=== PATIENT | female | born 1990 | race Two or more races ===

== ENCOUNTER → 2021-08-02 | Outpatient (CLI) | payer BC ==
[2021-08-02 10:32] LABS: Alcohol, Urine < 3.0 mg/dL (0-10); Amphetamine Screen, Urine NEGATIVE (NEGATIVE); Barbiturate Scree,Urine NEGATIVE (NEGATIVE); Benzodiazephine Screen, Urine NEGATIVE (NEGATIVE); Cannabinoid Screen, Urine NEGATIVE (NEGATIVE); Cocaine Screen, Urine NEGATIVE (NEGATIVE); Opiate Scree,Urine NEGATIVE (NEGATIVE); Phencyclidine Screen, Urine NEGATIVE (NEGATIVE)
== END | disposition home or self-care (01) ==
LOC: LAB 09:02
PROVIDERS: ATTEND Obstetrics & Gynecology
DX: Z34.80 Encounter for supervision of other normal pregnancy, unspecified trimester (principal); Z31.430 Encounter of female for testing for genetic disease carrier status for procreative management; N39.0 Urinary tract infection, site not specified
CPT/HCPCS: 80307; 86703

== ENCOUNTER 2021-09-19 07:26 | Observation (INO) | payer BC ==
[~2021-09-19 07:26] MED LIST: PREN-129 OR
== END 2021-09-19 10:00 | disposition home or self-care (01) ==
LOC: LDRP 08:04
PROVIDERS: ADMIT Obstetrics & Gynecology; ATTEND Obstetrics & Gynecology
DX: O12.02 Gestational edema, second trimester (principal); Z3A.25 25 weeks gestation of pregnancy
CPT/HCPCS: 59025; 81002; 94760; G0378

== ENCOUNTER → 2021-09-20 | Outpatient (CLI) | payer BC ==
[2021-09-20 13:03] LABS: Potassium 3.5 mmol/L (3.5-5.1)
[2021-09-20 13:18] LABS: Albumin 2.9 g/dL (3.4-5.0); BUN/Creatinine Ratio 11.8; Bilirubin, Total 0.4 mg/dL (0.2-1.0); Calcium 9.2 mg/dL (8.5-10.1); Total Protein 6.9 g/dL (6.4-8.2)
== END | disposition home or self-care (01) ==
LOC: LAB 11:54
PROVIDERS: ATTEND Obstetrics & Gynecology
DX: Z34.80 Encounter for supervision of other normal pregnancy, unspecified trimester (principal); L29.9 Pruritus, unspecified
CPT/HCPCS: 36415; 80053

== ENCOUNTER 2021-09-29 07:44 | Observation (INO) | payer BC ==
[~2021-09-29 07:44] MED LIST changes: +URSO1TAB7 PO
[2021-11-24] MEDS ORDERED: URSO300C9 PO (11:20)
[2021-11-24] MEDS ORDERED: DIPH25CA66 PO (11:20)
[2021-11-24] MEDS ORDERED: GLYB1.257 PO (11:37)
[2021-11-24] MEDS ORDERED: METF-370 PO (11:37)
== END 2021-09-29 11:20 | disposition home or self-care (01) ==
LOC: LDRP 10:00
PROVIDERS: ADMIT Obstetrics & Gynecology; ATTEND Obstetrics & Gynecology
DX: O26.612 Liver and biliary tract disorders in pregnancy, second trimester (principal); K83.1 Obstruction of bile duct; Z3A.26 26 weeks gestation of pregnancy
CPT/HCPCS: 59025; 81002; G0378

== ENCOUNTER 2021-10-06 08:02 | Observation (INO) | payer BC ==
[2021-11-24] MEDS ORDERED: URSO300C9 PO (11:20)
[2021-11-24] MEDS ORDERED: DIPH25CA66 PO (11:20)
[2021-11-24] MEDS ORDERED: GLYB1.257 PO (11:37)
[2021-11-24] MEDS ORDERED: METF-370 PO (11:37)
== END 2021-10-06 09:50 | disposition home or self-care (01) ==
LOC: UNDOADMOB 08:02 → LDRP 08:02 → UNDODISOB 09:50
PROVIDERS: ADMIT Obstetrics & Gynecology; ATTEND Obstetrics & Gynecology
DX: O26.613 Liver and biliary tract disorders in pregnancy, third trimester (principal); K83.1 Obstruction of bile duct; O62.9 Abnormality of forces of labor, unspecified; O26.893 Other specified pregnancy related conditions, third trimester; R11.0 Nausea; R21 Rash and other nonspecific skin eruption; Z3A.28 28 weeks gestation of pregnancy
CPT/HCPCS: 59025; 81002; 94760; G0378

== ENCOUNTER 2021-10-13 07:58 | Observation (INO) | payer BC ==
[2021-10-13] MEDS ORDERED: URSO300C9 PO ×2 (08:53)
[2021-11-24] MEDS ORDERED: DIPH25CA66 PO (11:20)
[2021-11-24] MEDS ORDERED: URSO300C9 PO (11:20)
[2021-11-24] MEDS ORDERED: GLYB1.257 PO (11:37)
[2021-11-24] MEDS ORDERED: METF-370 PO (11:37)
== END 2021-10-13 09:18 | disposition home or self-care (01) ==
LOC: UNDOADMOB 08:04 → LDRP 08:04 → UNDODISOB 09:18
PROVIDERS: ADMIT Obstetrics & Gynecology; ATTEND Obstetrics & Gynecology
DX: O26.613 Liver and biliary tract disorders in pregnancy, third trimester (principal); K83.1 Obstruction of bile duct; O24.419 Gestational diabetes mellitus in pregnancy, unspecified control; Z3A.28 28 weeks gestation of pregnancy
CPT/HCPCS: 59025; 81002; 82962; 94760; G0378

== ENCOUNTER 2021-10-27 08:02 | Observation (INO) | payer BC ==
[~2021-10-27 08:02] MED LIST changes: -URSO1TAB7 PO; +URSO300C9 PO
[2021-11-24] MEDS ORDERED: DIPH25CA66 PO (11:20)
[2021-11-24] MEDS ORDERED: URSO300C9 PO (11:20)
[2021-11-24] MEDS ORDERED: GLYB1.257 PO (11:37)
[2021-11-24] MEDS ORDERED: METF-370 PO (11:37)
== END 2021-10-27 08:58 | disposition home or self-care (01) ==
LOC: LDRP 08:02
PROVIDERS: ADMIT Obstetrics & Gynecology; ATTEND Obstetrics & Gynecology
DX: O26.613 Liver and biliary tract disorders in pregnancy, third trimester (principal); K83.1 Obstruction of bile duct; O24.419 Gestational diabetes mellitus in pregnancy, unspecified control; O26.893 Other specified pregnancy related conditions, third trimester; L29.9 Pruritus, unspecified; Z3A.30 30 weeks gestation of pregnancy
CPT/HCPCS: 59025; 81002; 82948; 82962; 94760; G0378

== ENCOUNTER 2021-11-03 08:04 | Observation (INO) | payer BC | END 2021-11-03 10:08 | disposition home or self-care (01) | LOC: UNDOADMOB 08:04 → LDRP 08:04 → UNDODISOB 10:08 | PROVIDERS: ADMIT Obstetrics & Gynecology; ATTEND Obstetrics & Gynecology | DX: O24.419 Gestational diabetes mellitus in pregnancy, unspecified control (principal); Z3A.31 31 weeks gestation of pregnancy | CPT/HCPCS: 59025; 81002; 94760; G0378 ==

== ENCOUNTER 2021-11-10 09:53 | Observation (INO) | payer BC ==
[~2021-11-10 09:53] MED LIST changes: +URSO1TAB7 PO
[2021-11-24] MEDS ORDERED: DIPH25CA66 PO (11:20)
[2021-11-24] MEDS ORDERED: URSO300C9 PO (11:20)
[2021-11-24] MEDS ORDERED: GLYB1.257 PO (11:37)
[2021-11-24] MEDS ORDERED: METF-370 PO (11:37)
== END 2021-11-10 11:42 | disposition home or self-care (01) ==
LOC: UNDOADMOB 10:11 → LDRP 10:11 → UNDODISOB 11:42
PROVIDERS: ADMIT Obstetrics & Gynecology; ATTEND Obstetrics & Gynecology
DX: O24.419 Gestational diabetes mellitus in pregnancy, unspecified control (principal); O26.613 Liver and biliary tract disorders in pregnancy, third trimester; K83.1 Obstruction of bile duct; Z3A.32 32 weeks gestation of pregnancy
CPT/HCPCS: 59025; 76818; 81002; 82962; 94760; G0378

== ENCOUNTER 2021-11-14 08:05 | Observation (INO) | payer BC ==
[~2021-11-14 08:05] MED LIST changes: -URSO1TAB7 PO
== END 2021-11-14 10:45 | disposition home or self-care (01) ==
LOC: LDRP 09:00 → UNDOADMOB 09:00 → LDRP 09:37 → UNDODISOB 10:45
PROVIDERS: ADMIT Obstetrics & Gynecology; ATTEND Obstetrics & Gynecology
DX: O24.419 Gestational diabetes mellitus in pregnancy, unspecified control (principal); O26.613 Liver and biliary tract disorders in pregnancy, third trimester; K83.1 Obstruction of bile duct; Z3A.33 33 weeks gestation of pregnancy
CPT/HCPCS: 59025; 76818; 81002; 82948; 82962; 94760; G0378

== ENCOUNTER 2021-11-17 07:57 | Observation (INO) | payer BC | END 2021-11-17 11:35 | disposition home or self-care (01) | LOC: LDRP 10:00 | PROVIDERS: ADMIT Obstetrics & Gynecology; ATTEND Obstetrics & Gynecology | DX: O24.419 Gestational diabetes mellitus in pregnancy, unspecified control (principal); O26.613 Liver and biliary tract disorders in pregnancy, third trimester; K83.1 Obstruction of bile duct; Z3A.33 33 weeks gestation of pregnancy | CPT/HCPCS: 59025; 76818; 81002; 82948; 82962; 94760; G0378 ==

== ENCOUNTER 2021-11-21 08:05 | Observation (INO) | payer BC | END 2021-11-21 12:39 | disposition home or self-care (01) | LOC: LDRP 10:00 | PROVIDERS: ADMIT Obstetrics & Gynecology; ATTEND Obstetrics & Gynecology | DX: O24.419 Gestational diabetes mellitus in pregnancy, unspecified control (principal); O26.613 Liver and biliary tract disorders in pregnancy, third trimester; K83.1 Obstruction of bile duct; Z3A.34 34 weeks gestation of pregnancy | CPT/HCPCS: 59025; 76818; 81002; 82948; 82962; 94760; G0378 ==

== ENCOUNTER 2021-11-24 10:24 | Observation (INO) | payer BC ==
[~2021-11-24] VITALS: Ht 147.3 cm; Wt 84.4 kg
[2021-11-24] MEDS ORDERED: URSO300C9 PO ×2 (11:20)
[2021-11-24] MEDS ORDERED: DIPH25CA66 PO ×2 (11:20)
[2021-11-24] MEDS ORDERED: BETAMETHASONE ACET (30mg/5ml) 5ml Vial 6mg/ml IM ONE (11:30)
[2021-11-24] MEDS ORDERED: GLYB1.257 PO ×2 (11:37)
[2021-11-24] MEDS ORDERED: METF-370 PO ×2 (11:37)
[2021-11-24 12:18] LABS: Basophils # (auto) 0 10 ^3/uL (0-0.2); Basophils % (auto) 0.4 % (0.0-2.0); Eosinophils # (auto) 0.1 10 ^3/uL (0-0.8); Eosinophils % (auto) 1.2 % (0.0-7.0); Hematocrit 34.9 % (36.0-46.0); Hemoglobin 12.4 g/dL (12.2-16.2); Lymphocytes # (auto) 1.4 10 ^3/uL (0.4-5.4); Lymphocytes % (auto) 14.1 % (10.0-50.0); Mean Corpuscular Hemoglobin 31.7 pg (28.0-32.0); Mean Corpuscular Hgb Conc. 35.7 g/dL (32.0-36.0); Mean Corpuscular Volume 88.8 fL (80.0-100.0); Monocytes # (auto) 0.7 10 ^3/uL (0-1.3); Monocytes % (auto) 7.1 % (0.0-12.0); Neutrophils # (auto) 7.6 10 ^3/uL (1.6-8.6); Neutrophils % (auto) 77.2 % (37.0-80.0); Red Blood Cells 3.93 10^6/uL (4.0-5.20); Red Cell Distribution Width 13.8 % (11.8-14.3); White Blood Cell 9.8 10^3/uL (4.4-10.8)
[2021-11-24 12:37] LABS: Albumin 2.4 g/dL (3.4-5.0); Calcium 8.6 mg/dL (8.5-10.1); Potassium 3.1 mmol/L (3.5-5.1)
[2021-11-24 12:42] LABS: BUN/Creatinine Ratio 10.8; Bilirubin, Total 0.3 mg/dL (0.2-1.0); Total Protein 6.3 g/dL (6.4-8.2); Uric Acid 2.7 mg/dL (2.6-6.0)
[2021-11-24] MEDS ORDERED: POTASSIUM CHL 20 Meq TABLET PO ONE (13:00)
== END 2021-11-24 13:31 | disposition home or self-care (01) ==
LOC: LDRP 10:24
PROVIDERS: ADMIT Obstetrics & Gynecology; ATTEND Obstetrics & Gynecology
DX: O24.419 Gestational diabetes mellitus in pregnancy, unspecified control (principal); O26.613 Liver and biliary tract disorders in pregnancy, third trimester; K83.1 Obstruction of bile duct; O26.893 Other specified pregnancy related conditions, third trimester; L29.9 Pruritus, unspecified; Z3A.34 34 weeks gestation of pregnancy
CPT/HCPCS: 36415; 59025; 76818; 80053; 81002; 82948; 82962; 84550; 85025; 94760; 96372; G0378; J0702

== ENCOUNTER 2021-11-25 08:19 | Observation (INO) | payer BC ==
[~2021-11-25 08:19] MED LIST changes: +DIPH25CA66 PO; +GLYB1.257 PO; +METF-370 PO
[2021-11-25] MEDS ORDERED: POTASSIUM CHL 20 Meq TABLET PO ONE (13:15)
[2021-11-25] MEDS ORDERED: BETAMETHASONE ACET (30mg/5ml) 5ml Vial 6mg/ml IM ONE (13:15)
== END 2021-11-25 13:13 | disposition home or self-care (01) ==
LOC: LDRP 13:13
PROVIDERS: ADMIT Obstetrics & Gynecology; ATTEND Obstetrics & Gynecology
DX: O24.419 Gestational diabetes mellitus in pregnancy, unspecified control (principal); O26.613 Liver and biliary tract disorders in pregnancy, third trimester; K83.1 Obstruction of bile duct; O21.2 Late vomiting of pregnancy; Z3A.35 35 weeks gestation of pregnancy
CPT/HCPCS: 59025; 81002; 82962; 94760; 96372; G0378

== ENCOUNTER 2021-11-27 10:00 | Observation (INO) | payer BC | END 2021-11-27 11:28 | disposition home or self-care (01) | LOC: LDRP 10:00 | PROVIDERS: ADMIT Obstetrics & Gynecology; ATTEND Obstetrics & Gynecology | DX: O24.419 Gestational diabetes mellitus in pregnancy, unspecified control (principal); O26.613 Liver and biliary tract disorders in pregnancy, third trimester; K83.1 Obstruction of bile duct; Z3A.35 35 weeks gestation of pregnancy | CPT/HCPCS: 59025; 76818; 81002; 82948; 82962; 94760; G0378 ==

== ENCOUNTER → 2021-11-29 | Outpatient (CLI) | payer BC ==
[2021-11-29 09:48] LABS: Basophils # (auto) 0 10 ^3/uL (0-0.2); Basophils % (auto) 0.4 % (0.0-2.0); Eosinophils # (auto) 0.1 10 ^3/uL (0-0.8); Eosinophils % (auto) 1.2 % (0.0-7.0); Hematocrit 35.8 % (36.0-46.0); Hemoglobin 12.8 g/dL (12.2-16.2); Lymphocytes # (auto) 1.8 10 ^3/uL (0.4-5.4); Lymphocytes % (auto) 16.8 % (10.0-50.0); Mean Corpuscular Hemoglobin 31.6 pg (28.0-32.0); Mean Corpuscular Hgb Conc. 35.7 g/dL (32.0-36.0); Mean Corpuscular Volume 88.6 fL (80.0-100.0); Monocytes # (auto) 0.7 10 ^3/uL (0-1.3); Monocytes % (auto) 6.7 % (0.0-12.0); Neutrophils # (auto) 7.9 10 ^3/uL (1.6-8.6); Neutrophils % (auto) 74.9 % (37.0-80.0); Red Blood Cells 4.04 10^6/uL (4.0-5.20); Red Cell Distribution Width 13.7 % (11.8-14.3); White Blood Cell 10.5 10^3/uL (4.4-10.8)
[2021-11-30 07:06] LABS: RPR Non Reactive (Non Reactive)
== END | disposition home or self-care (01) ==
LOC: LAB 09:37
PROVIDERS: ATTEND Obstetrics & Gynecology
DX: Z34.80 Encounter for supervision of other normal pregnancy, unspecified trimester (principal)
CPT/HCPCS: 36415; 84112; 85025; 86592

== ENCOUNTER → 2021-12-06 | Outpatient (CLI) | payer BC | END | disposition home or self-care (01) | LOC: LAB 15:09 | PROVIDERS: ATTEND Obstetrics & Gynecology | DX: Z34.00 Encounter for supervision of normal first pregnancy, unspecified trimester (principal) | CPT/HCPCS: 87081 ==

== ENCOUNTER 2021-12-08 08:30 | Observation (INO) | payer BC ==
[2021-12-08] MEDS ORDERED: NIFEdipine 10 MG CAP PO ONE (17:00)
[2021-12-08] MEDS ORDERED: LACTATED RINGER'S 1,000 ML IV ONE (17:00)
== END 2021-12-08 17:12 | disposition home or self-care (01) ==
LOC: UNDOADMOB 15:30 → LDRP 15:30
PROVIDERS: ADMIT Obstetrics & Gynecology; ATTEND Obstetrics & Gynecology
DX: O24.419 Gestational diabetes mellitus in pregnancy, unspecified control (principal); O26.613 Liver and biliary tract disorders in pregnancy, third trimester; K83.1 Obstruction of bile duct; Z3A.37 37 weeks gestation of pregnancy
CPT/HCPCS: 76818; G0378; 59025; 94760

== ENCOUNTER → 2022-10-03 | Outpatient (CLI) | payer BC ==
[~2022-10-03] MED LIST changes: -DIPH25CA66 PO; -GLYB1.257 PO; -METF-370 PO; -URSO300C9 PO
[2022-10-03 10:31] LABS: Basophils # (auto) 0.1 10 ^3/uL (0-0.2); Basophils % (auto) 1.2 % (0.0-2.0); Eosinophils # (auto) 0.2 10 ^3/uL (0-0.8); Eosinophils % (auto) 1.9 % (0.0-7.0); Hematocrit 38.1 % (36.0-46.0); Hemoglobin 13.7 g/dL (12.2-16.2); Lymphocytes # (auto) 1.5 10 ^3/uL (0.4-5.4); Lymphocytes % (auto) 17.7 % (10.0-50.0); Mean Corpuscular Hemoglobin 30.3 pg (28.0-32.0); Mean Corpuscular Volume 84.3 fL (80.0-100.0); Monocytes # (auto) 0.5 10 ^3/uL (0-1.3); Monocytes % (auto) 5.6 % (0.0-12.0); Neutrophils # (auto) 6.2 10 ^3/uL (1.6-8.6); Neutrophils % (auto) 73.6 % (37.0-80.0); Red Blood Cells 4.52 10^6/uL (4.0-5.20); Red Cell Distribution Width 12.8 % (11.8-14.3); White Blood Cell 8.5 10^3/uL (4.4-10.8)
[2022-10-03 11:32] LABS: Amphetamine Screen, Urine NEGATIVE (NEGATIVE); Barbiturate Scree,Urine NEGATIVE (NEGATIVE); Benzodiazephine Screen, Urine NEGATIVE (NEGATIVE); Cannabinoid Screen, Urine NEGATIVE (NEGATIVE); Cocaine Screen, Urine NEGATIVE (NEGATIVE); Opiate Scree,Urine NEGATIVE (NEGATIVE); Phencyclidine Screen, Urine NEGATIVE (NEGATIVE)
[2022-10-04 06:06] LABS: RPR Non Reactive (Non Reactive)
== END | disposition home or self-care (01) ==
LOC: LAB 09:16
PROVIDERS: ATTEND Obstetrics & Gynecology
DX: Z34.80 Encounter for supervision of other normal pregnancy, unspecified trimester (principal); N39.0 Urinary tract infection, site not specified; Z3A.00 Weeks of gestation of pregnancy not specified
CPT/HCPCS: 36415; 80307; 83036; 84112; 84144; 84702; 85025; 86592; 86703; 86762; 86850; 86900; 86901; 87086; 87340

== ENCOUNTER → 2023-02-02 | Outpatient (CLI) | payer BC ==
[2023-02-02 07:04] LABS: Chloride 111 mmol/L (98-107); Potassium 3.9 mmol/L (3.5-5.1); Sodium 138 mmol/L (136-145)
[2023-02-02 07:10] LABS: Alanine Aminotransferase 11 U/L (13-56); Albumin 2.7 g/dL (3.4-5.0); Alkaline Phosphatase 126 U/L (45-117); Anion Gap 9 (5-15); Aspartate Aminotransferase 10 U/L (15-37); BUN/Creatinine Ratio 11.6 (10.0-20.0); Bilirubin, Direct < 0.1 mg/dL (0-0.2); Bilirubin, Total 0.2 mg/dL (0.2-1.0); Blood Urea Nitrogen 5 mg/dL (7-18); Calcium 8.6 mg/dL (8.5-10.1); Carbon Dioxide 18 mmol/L (21-32); GFR African American 222 mL/min; GFR Non-African American 183 mL/min; Glucose 99 mg/dL (74-106); Total Protein 7.1 g/dL (6.4-8.2); Uric Acid 2.1 mg/dL (2.6-6.0)
[2023-02-02 12:27] LABS: Basophils # (auto) 0 10 ^3/uL (0-0.2); Basophils % (auto) 0.5 % (0.0-2.0); Eosinophils # (auto) 0.2 10 ^3/uL (0-0.8); Eosinophils % (auto) 1.9 % (0.0-7.0); Hematocrit 38.3 % (36.0-46.0); Hemoglobin 12.7 g/dL (12.2-16.2); Lymphocytes # (auto) 1.5 10 ^3/uL (0.4-5.4); Lymphocytes % (auto) 15.4 % (10.0-50.0); Mean Corpuscular Hemoglobin 30.6 pg (28.0-32.0); Mean Corpuscular Hgb Conc. 33.3 g/dL (32.0-36.0); Mean Corpuscular Volume 92.1 fL (80.0-100.0); Monocytes # (auto) 0.5 10 ^3/uL (0-1.3); Monocytes % (auto) 5.6 % (0.0-12.0); Neutrophils # (auto) 7.4 10 ^3/uL (1.6-8.6); Neutrophils % (auto) 76.6 % (37.0-80.0); Nucleated Red Blood Cells % 0.2 %; Red Blood Cells 4.16 10^6/uL (4.0-5.20); Red Cell Distribution Width 13.8 % (11.8-14.3); White Blood Cell 9.6 10^3/uL (4.4-10.8)
== END | disposition home or self-care (01) ==
LOC: LAB 06:12
PROVIDERS: ATTEND Obstetrics & Gynecology
DX: O99.810 Abnormal glucose complicating pregnancy (principal); Z3A.00 Weeks of gestation of pregnancy not specified
CPT/HCPCS: 36415; 80053; 80076; 82951; 83036; 84550; 85025

== ENCOUNTER 2023-02-08 17:10 | Observation (INO) | payer BC ==
[2023-02-08] MEDS ORDERED: PREN-96 PO (18:13)
== END 2023-02-08 18:20 | disposition home or self-care (01) ==
LOC: LDRP 17:10
PROVIDERS: ADMIT Obstetrics & Gynecology; ATTEND Obstetrics & Gynecology
DX: O24.419 Gestational diabetes mellitus in pregnancy, unspecified control (principal); O26.613 Liver and biliary tract disorders in pregnancy, third trimester; K83.1 Obstruction of bile duct; Z3A.28 28 weeks gestation of pregnancy
CPT/HCPCS: 59025; 81002; 82948; 82962; 94760; G0378

== ENCOUNTER 2023-02-19 09:03 | Observation (INO) | payer BC ==
[~2023-02-19 09:03] MED LIST changes: +PREN-96 PO
[2023-02-19] MEDS ORDERED: URSO300C2 PO ×2 (18:24)
== END 2023-02-19 18:46 | disposition home or self-care (01) ==
LOC: UNDOADMOB 16:00 → LDRP 16:00 → UNDODISOB 18:46
PROVIDERS: ADMIT Obstetrics & Gynecology; ATTEND Obstetrics & Gynecology
DX: O24.419 Gestational diabetes mellitus in pregnancy, unspecified control (principal); Z3A.30 30 weeks gestation of pregnancy
CPT/HCPCS: 59025; 76818; 81002; 82948; 82962; 94760; G0378

== ENCOUNTER 2023-02-21 09:21 | Observation (INO) | payer BC ==
[~2023-02-21 09:21] MED LIST changes: +URSO300C2 PO
== END 2023-02-21 17:44 | disposition home or self-care (01) ==
LOC: LDRP 15:53 → UNDOADMOB 15:53 → LDRP 16:14 → UNDODISOB 17:44
PROVIDERS: ADMIT Obstetrics & Gynecology; ATTEND Obstetrics & Gynecology
DX: O24.419 Gestational diabetes mellitus in pregnancy, unspecified control (principal); O26.613 Liver and biliary tract disorders in pregnancy, third trimester; K83.1 Obstruction of bile duct; Z3A.30 30 weeks gestation of pregnancy
CPT/HCPCS: 59025; 76818; 81002; 82948; 82962; 94760; G0378

== ENCOUNTER 2023-02-24 12:54 | Observation (INO) | payer BC, MEDICAID ==
[~2023-02-24 12:54] MED LIST changes: -PREN-129 OR
== END 2023-02-24 14:44 | disposition home or self-care (01) ==
LOC: LDRP 12:54
PROVIDERS: ADMIT Obstetrics & Gynecology; ATTEND Obstetrics & Gynecology
DX: O26.613 Liver and biliary tract disorders in pregnancy, third trimester (principal); K83.1 Obstruction of bile duct; O24.419 Gestational diabetes mellitus in pregnancy, unspecified control; O26.893 Other specified pregnancy related conditions, third trimester; R10.2 Pelvic and perineal pain; Z3A.30 30 weeks gestation of pregnancy
CPT/HCPCS: 59025; 76818; 81002; 82948; 82962; 94760; G0378

== ENCOUNTER 2023-03-03 13:05 | Observation (INO) | payer BC, MEDICAID | END 2023-03-03 15:09 | disposition home or self-care (01) | LOC: LDRP 13:05 → UNDODISOB 16:05 | PROVIDERS: ADMIT Obstetrics & Gynecology; ATTEND Obstetrics & Gynecology | DX: O26.613 Liver and biliary tract disorders in pregnancy, third trimester (principal); K83.1 Obstruction of bile duct; O24.419 Gestational diabetes mellitus in pregnancy, unspecified control; Z3A.31 31 weeks gestation of pregnancy; Z91.040 Latex allergy status | CPT/HCPCS: 59025; 76818; 81002; 94760; G0378 ==

== ENCOUNTER 2023-03-07 16:00 | Observation (INO) | payer BC, MEDICAID | END 2023-03-07 17:00 | disposition home or self-care (01) | LOC: UNDOADMOB 16:00 → LDRP 16:00 → UNDODISOB 17:00 | PROVIDERS: ADMIT Obstetrics & Gynecology; ATTEND Obstetrics & Gynecology | DX: O24.415 Gestational diabetes mellitus in pregnancy, controlled by oral hypoglycemic drugs (principal); O26.613 Liver and biliary tract disorders in pregnancy, third trimester; K83.1 Obstruction of bile duct; Z3A.32 32 weeks gestation of pregnancy; Z79.84 Long term (current) use of oral hypoglycemic drugs | CPT/HCPCS: 59025; 76818; 81002; 94760; G0378 ==

== ENCOUNTER 2023-03-14 07:57 | Observation (INO) | payer BC, MEDICAID ==
[2023-03-14 20:04] LABS: Alanine Aminotransferase 9 U/L (7-40); Albumin 4.1 g/dL (3.2-4.8); Alkaline Phosphatase 170 U/L (46-116); Anion Gap 9 (5-15); Aspartate Aminotransferase 10 U/L (13-40); BUN/Creatinine Ratio 13.2 (10.0-20.0); Bilirubin, Total 0.5 mg/dL (0.2-1.0); Blood Urea Nitrogen < 5 mg/dL (9-23); Calcium 9.3 mg/dL (8.7-10.4); Carbon Dioxide 21 mmol/L (20-30); Chloride 106 mmol/L (98-107); Glucose 80 mg/dL (74-106); Potassium 3.5 mmol/L (3.5-5.1); Sodium 136 mmol/L (136-145)
== END 2023-03-14 19:33 | disposition home or self-care (01) ==
LOC: UNDOADMOB 16:15 → LDRP 16:15
PROVIDERS: ADMIT Obstetrics & Gynecology; ATTEND Obstetrics & Gynecology
DX: O24.419 Gestational diabetes mellitus in pregnancy, unspecified control (principal); O26.613 Liver and biliary tract disorders in pregnancy, third trimester; K83.1 Obstruction of bile duct; Z3A.33 33 weeks gestation of pregnancy
CPT/HCPCS: 36415; 59025; 76818; 80053; 81002; 82948; 82962; 94760; G0378

== ENCOUNTER 2023-03-17 12:09 | Observation (INO) | payer BC, MEDICAID ==
[~2023-03-17] VITALS: Ht 149.9 cm; Wt 82.6 kg
[2023-03-17] MEDS ORDERED: LACTATED RINGER'S 1,000 ML IV ONE (14:15)
[2023-03-17] MEDS ORDERED: METF500S3 PO (14:47)
== END 2023-03-17 15:05 | disposition home or self-care (01) ==
LOC: LDRP 12:09
PROVIDERS: ADMIT Obstetrics & Gynecology; ATTEND Obstetrics & Gynecology
DX: O24.419 Gestational diabetes mellitus in pregnancy, unspecified control (principal); O26.613 Liver and biliary tract disorders in pregnancy, third trimester; K83.1 Obstruction of bile duct; Z3A.33 33 weeks gestation of pregnancy
CPT/HCPCS: 59025; 76818; 81002; 82948; 82962; 94760; 96360; 96361; G0378

== ENCOUNTER 2023-03-21 07:25 | Observation (INO) | payer BC, MEDICAID ==
[~2023-03-21 07:25] MED LIST changes: +METF500S3 PO
== END 2023-03-21 19:13 | disposition home or self-care (01) ==
LOC: UNDOADMOB 15:57 → LDRP 15:57 → UNDODISOB 19:13
PROVIDERS: ADMIT Obstetrics & Gynecology; ATTEND Obstetrics & Gynecology
DX: O24.415 Gestational diabetes mellitus in pregnancy, controlled by oral hypoglycemic drugs (principal); K83.1 Obstruction of bile duct; O24.419 Gestational diabetes mellitus in pregnancy, unspecified control; O62.9 Abnormality of forces of labor, unspecified; Z3A.34 34 weeks gestation of pregnancy; Z79.84 Long term (current) use of oral hypoglycemic drugs
CPT/HCPCS: 59025; 76818; 81002; 82948; 82962; G0378

== ENCOUNTER 2023-03-25 12:02 | Observation (INO) | payer BC, MEDICAID ==
[2023-03-25 15:11] LABS: Basophils # (auto) 0 10 ^3/uL (0-0.2); Basophils % (auto) 0.5 % (0.0-2.0); Eosinophils # (auto) 0.1 10 ^3/uL (0-0.8); Eosinophils % (auto) 0.9 % (0.0-7.0); Hematocrit 38.4 % (36.0-46.0); Hemoglobin 13.4 g/dL (12.2-16.2); Lymphocytes # (auto) 1.4 10 ^3/uL (0.4-5.4); Mean Corpuscular Hemoglobin 31.2 pg (28.0-32.0); Mean Corpuscular Volume 89.1 fL (80.0-100.0); Monocytes # (auto) 0.5 10 ^3/uL (0-1.3); Monocytes % (auto) 5.7 % (0.0-12.0); Neutrophils # (auto) 7.4 10 ^3/uL (1.6-8.6); Neutrophils % (auto) 77.9 % (37.0-80.0); Nucleated Red Blood Cells % 0.1 %; Red Cell Distribution Width 13.6 % (11.8-14.3); White Blood Cell 9.5 10^3/uL (4.4-10.8)
[2023-03-25 15:36] LABS: Albumin 3.7 g/dL (3.2-4.8); Alkaline Phosphatase 185 U/L (46-116); Anion Gap 8 (5-15); Aspartate Aminotransferase 10 U/L (13-40); BUN/Creatinine Ratio 15.4 (10.0-20.0); Bilirubin, Total 0.5 mg/dL (0.2-1.0); Blood Urea Nitrogen 6 mg/dL (9-23); Calcium 9.6 mg/dL (8.7-10.4); Carbon Dioxide 23 mmol/L (20-30); Chloride 106 mmol/L (98-107); Glucose 85 mg/dL (74-106); Potassium 4.1 mmol/L (3.5-5.1); Sodium 137 mmol/L (136-145); Total Protein 6.3 g/dL (5.7-8.2)
[2023-03-25 15:40] LABS: Alanine Aminotransferase 9 U/L (7-40)
[2023-03-27 08:06] LABS: RPR Non Reactive (Non Reactive)
== END 2023-03-25 15:00 | disposition home or self-care (01) ==
LOC: LDRP 12:02
PROVIDERS: ADMIT Obstetrics & Gynecology; ATTEND Obstetrics & Gynecology
DX: O24.419 Gestational diabetes mellitus in pregnancy, unspecified control (principal); O26.613 Liver and biliary tract disorders in pregnancy, third trimester; K83.1 Obstruction of bile duct; Z3A.34 34 weeks gestation of pregnancy
CPT/HCPCS: 36415; 59025; 76818; 80053; 81002; 82962; 83036; 85025; 86592; G0378

== ENCOUNTER 2023-03-28 11:01 | Observation (INO) | payer BC, MEDICAID | END 2023-03-28 18:00 | disposition home or self-care (01) | LOC: UNDOADMOB 16:08 → LDRP 16:08 → UNDODISOB 18:00 | PROVIDERS: ADMIT Obstetrics & Gynecology; ATTEND Obstetrics & Gynecology | DX: O24.419 Gestational diabetes mellitus in pregnancy, unspecified control (principal); O26.613 Liver and biliary tract disorders in pregnancy, third trimester; K83.1 Obstruction of bile duct; Z3A.35 35 weeks gestation of pregnancy | CPT/HCPCS: 59025; 76818; 81002; 82948; 82962; 94760; G0378 ==

== ENCOUNTER 2023-03-31 13:02 | Observation (INO) | payer BC, MEDICAID | END 2023-03-31 15:07 | disposition home or self-care (01) | LOC: LDRP 13:02 | PROVIDERS: ADMIT Obstetrics & Gynecology; ATTEND Obstetrics & Gynecology | DX: O24.419 Gestational diabetes mellitus in pregnancy, unspecified control (principal); O26.613 Liver and biliary tract disorders in pregnancy, third trimester; K83.1 Obstruction of bile duct; Z3A.35 35 weeks gestation of pregnancy | CPT/HCPCS: 59025; 76818; 81002; 82948; 82962; 94760; G0378 ==

== ENCOUNTER → 2023-04-03 | Outpatient (CLI) | payer BC, MEDICAID | END | disposition home or self-care (01) | LOC: LAB 15:33 | PROVIDERS: ATTEND Obstetrics & Gynecology | DX: Z34.80 Encounter for supervision of other normal pregnancy, unspecified trimester (principal); Z3A.00 Weeks of gestation of pregnancy not specified | CPT/HCPCS: 87081 ==

== ENCOUNTER 2023-04-04 09:27 | Observation (INO) | payer BC, MEDICAID | END 2023-04-04 17:35 | disposition home or self-care (01) | LOC: LDRP 15:54 | PROVIDERS: ADMIT Obstetrics & Gynecology; ATTEND Obstetrics & Gynecology | DX: O24.419 Gestational diabetes mellitus in pregnancy, unspecified control (principal); O26.613 Liver and biliary tract disorders in pregnancy, third trimester; K83.1 Obstruction of bile duct; Z3A.36 36 weeks gestation of pregnancy | CPT/HCPCS: 59025; 76818; 81002; 82962; 94760; G0378 ==

== ENCOUNTER 2023-04-07 12:40 | Observation (INO) | payer BC, MEDICAID | END 2023-04-07 14:34 | disposition home or self-care (01) | LOC: LDRP 12:40 | PROVIDERS: ADMIT Obstetrics & Gynecology; ATTEND Obstetrics & Gynecology | DX: O24.419 Gestational diabetes mellitus in pregnancy, unspecified control (principal); O26.613 Liver and biliary tract disorders in pregnancy, third trimester; K83.1 Obstruction of bile duct; Z3A.36 36 weeks gestation of pregnancy | CPT/HCPCS: 59025; 76818; 81002; 82962; 94760; G0378 ==

== ENCOUNTER 2023-04-10 07:10 | Inpatient (IN) | payer BC, MEDICAID ==
[~2023-04-10] VITALS: Ht 149.9 cm; Wt 90.7 kg
[2023-04-10] MEDS ORDERED: PHISODERM TOP SOLN 240ML BTL TOP PRN (07:30)
[2023-04-10] MEDS ORDERED: LIDOCAINE 2%HCL (LOCAL ANESTH.) INJ 20ML MDV IJ PRN (07:30)
[2023-04-10] MEDS ORDERED: DERMOPLAST 60ML BOTTLE TOP PRN (07:30)
[2023-04-10] MEDS ORDERED: WITCH HAZEL-GLYCERIN PAD TOP PRN (07:30)
[2023-04-10] MEDS ORDERED: BUTORPHANOL TARTRATE 2 MG/1 ML VIAL IV PRN ×2 (07:30)
[2023-04-10] MEDS ORDERED: PROMETHAZINE HCL 25 MG/ML 1ML IV PRN (07:30)
[2023-04-10 07:56] LABS: Urine Bacteria MOD /hpf (None Seen); Urine Blood Negative /uL (Negative); Urine Clarity HAZY (Clear); Urine Color Colorless (Yellow); Urine Protein, UAD Negative (Negative); Urine Specific Gravity 1.008 (1.001-1.035); Urine Urobilinogen Normal (Negative); Urine WBC 1 /hpf (0 - 5)
[2023-04-10 08:01] LABS: Basophils # (auto) 0 10 ^3/uL (0-0.2); Basophils % (auto) 0.5 % (0.0-2.0); Eosinophils # (auto) 0.1 10 ^3/uL (0-0.8); Eosinophils % (auto) 1.1 % (0.0-7.0); Hematocrit 39.3 % (36.0-46.0); Hemoglobin 13.4 g/dL (12.2-16.2); Lymphocytes # (auto) 1.6 10 ^3/uL (0.4-5.4); Lymphocytes % (auto) 18.9 % (10.0-50.0); Mean Corpuscular Hemoglobin 30.4 pg (28.0-32.0); Mean Corpuscular Hgb Conc. 34.1 g/dL (32.0-36.0); Mean Corpuscular Volume 89.2 fL (80.0-100.0); Monocytes # (auto) 0.5 10 ^3/uL (0-1.3); Monocytes % (auto) 6.2 % (0.0-12.0); Neutrophils # (auto) 6.3 10 ^3/uL (1.6-8.6); Neutrophils % (auto) 73.3 % (37.0-80.0); Nucleated Red Blood Cells % 0.1 %; Red Cell Distribution Width 13.4 % (11.8-14.3); White Blood Cell 8.6 10^3/uL (4.4-10.8)
[2023-04-10 08:21] LABS: INR 0.92 (0.9-1.15); Partial Thromboplastin Time 26.5 SEC (24.5-34.5); Prothrombin Time 9.7 sec (9.3-11.8)
[2023-04-10 08:25] LABS: Amphetamine Screen, Urine Neg (NEGATIVE); Barbiturate Scree,Urine Neg (NEGATIVE); Benzodiazephine Screen, Urine Neg (NEGATIVE); Cocaine Screen, Urine Neg (NEGATIVE)
[2023-04-10 08:26] LABS: Opiate Scree,Urine Neg (NEGATIVE)
[2023-04-10 08:27] LABS: Cannabinoid Screen, Urine Neg (NEGATIVE); Phencyclidine Screen, Urine Neg (NEGATIVE)
[2023-04-10 08:29] LABS: Alanine Aminotransferase < 9 U/L (7-40); Albumin 3.6 g/dL (3.2-4.8); Alkaline Phosphatase 187 U/L (46-116); Anion Gap 9 (5-15); Aspartate Aminotransferase 13 U/L (13-40); BUN/Creatinine Ratio 11.4 (10.0-20.0); Blood Urea Nitrogen < 5 mg/dL (9-23); Calcium 8.9 mg/dL (8.5-10.1); Carbon Dioxide 20 mmol/L (20-30); Chloride 108 mmol/L (98-107); Glucose 123 mg/dL (74-106); Potassium 3.9 mmol/L (3.5-5.1); Sodium 137 mmol/L (136-145)
[2023-04-10 08:30] LABS: Bilirubin, Total 0.5 mg/dL (0.2-1.0); Total Protein 6.5 g/dL (5.7-8.2)
[2023-04-10] MEDS ORDERED: PROMETHAZINE HCL 25 MG/ML 1ML IM PRN (08:45)
[2023-04-10] MEDS ORDERED: MINERAL OIL TOPICAL 10ml TOP PRN (08:45)
[2023-04-10] MEDS ORDERED: fentaNYL CITRATE 100 MCG/2 ML VL IV PRN (08:45)
[2023-04-10] MEDS: miSOPROStol 50 MCG per PRE-CUT 1/2 TAB PO PRN ×4 (09:46→23:37)
[2023-04-10] MEDS: LACTATED RINGER'S 1,000 ML IV SCH (09:46)
[2023-04-10] MEDS ORDERED: TERBUTALINE SULFATE 1 MG/ML 1ML VIAL SC PRN (10:15)
[2023-04-10] MEDS ORDERED: diphenhdrAMINE HCL 50 MG/1 ML VL IV PRN (10:15)
[2023-04-10] MEDS ORDERED: TRANEXAMIC ACID 1,000 MG in SODIUM CHL 0.9% 100 ML IV PRN (10:15)
[2023-04-10] MEDS ORDERED: METHYLERGONOVINE MALEATE 0.2 MG/ML AMP IM PRN (10:15)
[2023-04-10] MEDS ORDERED: ACETAMINOPHEN 325 MG TAB PO PRN (10:15)
[2023-04-10] MEDS ORDERED: miSOPROStol 100 mcg TAB SL PRN (10:15)
[2023-04-10] MEDS ORDERED: DIPHENOXYLATE W/ATROPINE 2.5 MG TAB PO SCH (12:00)
[2023-04-10] MEDS: URSODIOL 300 MG CAP PO SCH (18:45)
[2023-04-11] MEDS: LACTATED RINGER'S 1,000 ML IV SCH (00:12)
[2023-04-11] MEDS: URSODIOL 300 MG CAP PO SCH ×3 (03:29→19:10)
[2023-04-11] MEDS: miSOPROStol 50 MCG per PRE-CUT 1/2 TAB PO PRN (04:26)
[2023-04-11] MEDS ORDERED: PENICILLIN G POT 5MIL/D5 50ML 50 ML IV ONE (04:45)
[2023-04-11 07:06] LABS: RPR Non Reactive (Non Reactive)
[2023-04-11] MEDS: ONDANSETRON HCL 4 MG/2 ML VIAL IV PRN ×3 (08:11→15:08)
[2023-04-11] MEDS ORDERED: fentaNYL CITRATE 100 MCG/2 ML VL IV ONE (08:30)
[2023-04-11] MEDS ORDERED: NALOXONE HCL 0.4 MG/ML VIAL IV ONE (08:30)
[2023-04-11] MEDS ORDERED: ePHEDrine SULFATE 50 MG/ML AMP IV ONE (08:30)
[2023-04-11] MEDS ORDERED: ROPIVACAINE HCL 200 ML EPI SCH ×2 (08:30→12:30)
[2023-04-11] MEDS ORDERED: LACTATED RINGER'S 1,000 ML IV ONE (08:30)
[2023-04-11] MEDS ORDERED: ROPIVACAINE HCL 200 ML ONE (08:32)
[2023-04-11] MEDS ORDERED: PENICILLIN G POTASSIUM 2,500,000 UNITS in D5W 5% 50 ML IV SCH (08:45)
[2023-04-11] MEDS ORDERED: LACT. RINGERS/OXYTOCIN 20UNITS 500 ML IV ONE ×2 (09:00→09:30)
[2023-04-11] MEDS: LACT. RINGERS/OXYTOCIN 20UNITS 1,000 ML IV SCH ×2 (09:51→18:26)
[2023-04-11] MEDS ORDERED: D5W/LACTATED RINGERS 1,000 ML IV SCH (12:00)
[2023-04-11] MEDS: ACETAMINOPHEN 325 MG TAB PO PRN (12:52)
[2023-04-11] MEDS ORDERED: miSOPROStol 100 mcg TAB PR PRN (23:00)
[2023-04-11] MEDS ORDERED: miSOPROStol 100 mcg TAB SL PRN (23:00)
[2023-04-11] MEDS ORDERED: METHYLERGONOVINE MALEATE 0.2 MG/ML AMP IM PRN (23:00)
[2023-04-11] MEDS ORDERED: CARBOPROST TROMETHAMINE 250 MCG/1ML VIAL IM ONE (23:00)
[2023-04-11] MEDS ORDERED: ONDANSETRON HCL 4 MG/2 ML VIAL IV PRN (23:00)
[2023-04-12] MEDS ORDERED: OXYTOCIN 10UNIT/ML 1ML VIAL ONE (04:17)
[2023-04-12] MEDS ORDERED: ceFAZolin 2 GM/D5W100ml 100 ML IV ONE (04:21)
[2023-04-12] MEDS ORDERED: DOCUSATE SOD 100 MG CAP PO ONE (10:23)
[2023-04-12] MEDS ORDERED: IBUPROFEN 600 MG TAB PO ONE (10:23)
[2023-04-12] MEDS ORDERED: LACT. RINGERS/OXYTOCIN 20UNITS 500 ML IV ONE (13:45)
[2023-04-12 14:56] VITALS: BP 97/55; PULSE 85; RESP 17; TEMP 98; O2SAT 98
[2023-04-12] MEDS: IBUPROFEN 600 MG TAB PO PRN ×2 (15:29→23:02)
[2023-04-12 18:40] VITALS: BP 102/58; PULSE 92; RESP 17; TEMP 98.2; O2SAT 98
[2023-04-12] MEDS: ACETAMINOPHEN 325 MG TAB PO PRN (20:08)
[2023-04-12 23:10] VITALS: BP 91/60; PULSE 72; RESP 17; TEMP 97.9; O2SAT 99
[2023-04-13 03:10] VITALS: BP 93/59; PULSE 81; RESP 18; TEMP 97.4; O2SAT 100
[2023-04-13 06:30] VITALS: PULSE 61; RESP 16; O2SAT 96
[2023-04-13 07:00] VITALS: BP 108/69; PULSE 86; RESP 16; TEMP 98.5; O2SAT 98
[2023-04-13 08:03] LABS: Basophils # (auto) 0 10 ^3/uL (0-0.2); Basophils % (auto) 0.3 % (0.0-2.0); Eosinophils # (auto) 0.3 10 ^3/uL (0-0.8); Eosinophils % (auto) 3.5 % (0.0-7.0); Hematocrit 31.4 % (36.0-46.0); Hemoglobin 10.6 g/dL (12.2-16.2); Lymphocytes # (auto) 1.8 10 ^3/uL (0.4-5.4); Lymphocytes % (auto) 19.5 % (10.0-50.0); Mean Corpuscular Hemoglobin 30.7 pg (28.0-32.0); Mean Corpuscular Hgb Conc. 33.7 g/dL (32.0-36.0); Mean Corpuscular Volume 90.9 fL (80.0-100.0); Monocytes # (auto) 0.8 10 ^3/uL (0-1.3); Monocytes % (auto) 8.2 % (0.0-12.0); Neutrophils # (auto) 6.3 10 ^3/uL (1.6-8.6); Neutrophils % (auto) 68.5 % (37.0-80.0); Nucleated Red Blood Cells % 0.1 %; Red Blood Cells 3.45 10^6/uL (4.0-5.20); Red Cell Distribution Width 13.1 % (11.8-14.3); White Blood Cell 9.3 10^3/uL (4.4-10.8)
[2023-04-13 11:00] VITALS: BP 91/60; PULSE 72; RESP 17; TEMP 97.9; O2SAT 99
[2023-04-13 22:06] LABS: Treponema pallidum Ab (FTA-Ab) Non Reactive (Non Reactive)
== END 2023-04-13 11:35 | disposition home or self-care (01) | DRG 805 ==
LOC: NUR 07:10 → UNDOADMIN 07:10 → LDRP 07:10
PROVIDERS: ADMIT Obstetrics & Gynecology; ATTEND Obstetrics & Gynecology
PROC: 3E0P7VZ Introduction of Hormone into Female Reproductive, Via Natural or Artificial Opening (ICD-10-PCS; 2023-04-10)
PROC: 10E0XZZ Delivery of Products of Conception, External Approach (ICD-10-PCS; principal; 2023-04-12)
PROC: 10907ZC Drainage of Amniotic Fluid, Therapeutic from Products of Conception, Via Natural or Artificial Opening (ICD-10-PCS; 2023-04-12)
PROC: 3E0R3BZ Introduction of Anesthetic Agent into Spinal Canal, Percutaneous Approach (ICD-10-PCS; 2023-04-12)
PROC: 00HU33Z Insertion of Infusion Device into Spinal Canal, Percutaneous Approach (ICD-10-PCS; 2023-04-12)
PROC: 0HQ9XZZ Repair Perineum Skin, External Approach (ICD-10-PCS; 2023-04-12)
PROC: 3E033VJ Introduction of Other Hormone into Peripheral Vein, Percutaneous Approach (ICD-10-PCS; 2023-04-12)
DX: O77.0 Labor and delivery complicated by meconium in amniotic fluid (principal); K83.1 Obstruction of bile duct; Z37.0 Single live birth; O69.81X0 Labor and delivery complicated by cord around neck, without compression, not applicable or unspecified; O70.0 First degree perineal laceration during delivery; O24.429 Gestational diabetes mellitus in childbirth, unspecified control; O99.52 Diseases of the respiratory system complicating childbirth; J45.909 Unspecified asthma, uncomplicated; Z3A.37 37 weeks gestation of pregnancy; O66.0 Obstructed labor due to shoulder dystocia; O75.89 Other specified complications of labor and delivery
CPT/HCPCS: 36415; 59025; 59409; 80053; 80307; 81001; 81002; 82948; 82962; 85025; 85610; 85730; 86592; 86850; 86900; 86901; 94760; 94762; 96360; 96361; 96365; 96366; 96372; G0378; J2405; J2540; J2590; J7060

== ENCOUNTER 2023-05-17 23:19 | Inpatient (IN) | payer BC, MEDICAID ==
[~2023-05-17] VITALS: Ht 149.9 cm; Wt 86.3 kg
[2023-05-18] VITALS (9 sets, daily range): BP systolic 98–113; BP diastolic 66–67; PULSE 89–98; RESP 16–18; TEMP 98.2–99.1; O2SAT 95–100
[2023-05-18 00:16] LABS: Basophils # (auto) 0 10 ^3/uL (0-0.2); Basophils % (auto) 0.2 % (0.0-2.0); Eosinophils # (auto) 0 10 ^3/uL (0-0.8); Hematocrit 44.6 % (36.0-46.0); Hemoglobin 14.9 g/dL (12.2-16.2); Lymphocytes # (auto) 1.2 10 ^3/uL (0.4-5.4); Lymphocytes % (auto) 6.8 % (10.0-50.0); Mean Corpuscular Hemoglobin 29.8 pg (28.0-32.0); Mean Corpuscular Hgb Conc. 33.5 g/dL (32.0-36.0); Monocytes # (auto) 0.9 10 ^3/uL (0-1.3); Monocytes % (auto) 5.2 % (0.0-12.0); Neutrophils # (auto) 15.6 10 ^3/uL (1.6-8.6); Neutrophils % (auto) 87.8 % (37.0-80.0); Red Blood Cells 5.02 10^6/uL (4.0-5.20); Red Cell Distribution Width 12.5 % (11.8-14.3); White Blood Cell 17.7 10^3/uL (4.4-10.8)
[2023-05-18 00:37] LABS: Alanine Aminotransferase 36 U/L (7-40); Albumin 4.9 g/dL (3.2-4.8); Alkaline Phosphatase 137 U/L (46-116); Anion Gap 13 (5-15); Aspartate Aminotransferase 20 U/L (13-40); BUN/Creatinine Ratio 15.8 (10.0-20.0); Bilirubin, Total 0.8 mg/dL (0.2-1.0); Blood Urea Nitrogen 12 mg/dL (9-23); Calcium 9.2 mg/dL (8.7-10.4); Carbon Dioxide 21 mmol/L (20-30); Chloride 104 mmol/L (98-107); Glucose 141 mg/dL (74-106); Lipase 32 U/L (12-53); Potassium 3.7 mmol/L (3.5-5.1); Sodium 138 mmol/L (136-145); Total Protein 7.7 g/dL (5.7-8.2)
[2023-05-18 01:19] LABS: Urine Bacteria NONE SEEN /hpf (None Seen); Urine Blood Negative /uL (Negative); Urine Clarity HAZY (Clear); Urine Color Yellow (Yellow); Urine Mucus FEW (None Seen); Urine Protein, UAD 1+ (Negative); Urine Specific Gravity 1.034 (1.001-1.035); Urine WBC 14 /hpf (0 - 5)
[2023-05-18] MEDS ORDERED: IOHEXOL 300 MG/ML 100ML BOTTLE IJ ONE (03:08)
[2023-05-18 03:15] LABS: Lactic Acid w/Reflex 2.3 mmol/L (0.4-2.0)
[2023-05-18] MEDS ORDERED: PIPERACILLIN-TAZOB 3.375GM 100 ML IV ONE (03:30)
[2023-05-18] MEDS ORDERED: SODIUM CHLORIDE 0.9% 1,000 ML IV ONE (03:30)
[2023-05-18] MEDS ORDERED: ONDANSETRON HCL 4 MG/2 ML VIAL IV ONE (05:00)
[2023-05-18] MEDS ORDERED: MORPHINE SULFATE INJ 2 MG/ml SYRG IV ONE (05:00)
[2023-05-18] MEDS ORDERED: ONDANSETRON HCL 4 MG/2 ML VIAL IV PRN ×2 (11:15→12:15)
[2023-05-18] MEDS: SODIUM CHLORIDE 0.9% 1,000 ML IV SCH ×2 (11:15→22:29)
[2023-05-18] MEDS ORDERED: ceFAZolin 2 GM/D5W100ml 100 ML IV ONE (11:21)
[2023-05-18] MEDS ORDERED: MEPERIDINE HCL (50 MG/ML) 1 ML VIAL ONE (11:42)
[2023-05-18] MEDS ORDERED: fentaNYL CITRATE 100 MCG/2 ML VL ONE (11:42)
[2023-05-18] MEDS ORDERED: MIDAZOLAM HCL 2MG/2ML 2ml VIAL (1mg/ml) ONE (11:42)
[2023-05-18] MEDS ORDERED: DexAMETHasone SOD PHOS 10MG/1ML VIAL INJ ONE (12:15)
[2023-05-18] MEDS ORDERED: KETOROLAC TROMETH 30 MG/ML 1ML VIAL IV ONE (12:15)
[2023-05-18] MEDS ORDERED: ONDANSETRON HCL 4 MG/2 ML VIAL ONE (12:15)
[2023-05-18] MEDS ORDERED: ePHEDrine SULFATE 50 MG/ML AMP IV PRN (12:15)
[2023-05-18] MEDS ORDERED: PROPOFOL 10 MG/ML 20 ML IV ONE (12:15)
[2023-05-18] MEDS ORDERED: MORPHINE SULFATE 4 MG/ML SYR/VIAL IV PRN (12:15)
[2023-05-18] MEDS ORDERED: HYDROmorphone HCL 2 MG/ML VL/or syr IV PRN (12:15)
[2023-05-18] MEDS ORDERED: LABETALOL HCL 5 MG/ML 4ML SYRINGE IV PRN (12:15)
[2023-05-18] MEDS ORDERED: MIDAZOLAM HCL 2MG/2ML 2ml VIAL (1mg/ml) IV PRN (12:15)
[2023-05-18] MEDS ORDERED: HYDROmorphone HCL 2 MG/ML VL/or syr IV ONE (12:45)
[2023-05-18] MEDS ORDERED: ALBUTEROL MEDNEB 2.5 mg/3ml NEB NEB PRN (13:45)
[2023-05-18] MEDS: PIPERACILLIN-TAZOB 3.375GM 100 ML IV SCH ×2 (14:00→22:28)
[2023-05-18] MEDS ORDERED: metroNIDAZOLE 500MG/100ML 100 ML IV SCH (14:00)
[2023-05-18] MEDS ORDERED: HYDROmorphone HCL 2 MG/ML VL/or syr ONE (15:13)
[2023-05-18 15:50] LABS: Triglycerides 66 mg/dL (< 150)
[2023-05-18 15:51] LABS: LDL Cholesterol 55 mg/dL (< 100)
[2023-05-18 15:52] LABS: Cholesterol 118 mg/dL (< 200); HDL Cholesterol 50 mg/dL (40-59)
[2023-05-18] MEDS ORDERED: ACETAMINOPHEN 325 MG TAB PO PRN (17:30)
[2023-05-18] MEDS: HYDROcodone-ACET 5/325MG TAB PO PRN (18:14)
[2023-05-18] MEDS ORDERED: SERT50TA PO (19:10)
[2023-05-18] MEDS: MORPHINE SULFATE INJ 2 MG/ml SYRG IV PRN (21:45)
[2023-05-19] VITALS (9 sets, daily range): BP systolic 95–123; BP diastolic 57–78; PULSE 71–112; RESP 16–18; TEMP 97.5–98.6; O2SAT 96–100
[2023-05-19] MEDS: HYDROcodone-ACET 5/325MG TAB PO PRN ×4 (00:50→20:42)
[2023-05-19] MEDS: SODIUM CHLORIDE 0.9% 1,000 ML IV SCH ×3 (03:55→20:35)
[2023-05-19] MEDS: PIPERACILLIN-TAZOB 3.375GM 100 ML IV SCH ×3 (06:02→22:01)
[2023-05-19] MEDS: MORPHINE SULFATE INJ 2 MG/ml SYRG IV PRN ×2 (06:12→11:05)
[2023-05-19 06:38] LABS: Basophils # (auto) 0 10 ^3/uL (0-0.2); Basophils % (auto) 0.1 % (0.0-2.0); Eosinophils # (auto) 0 10 ^3/uL (0-0.8); Hematocrit 36.5 % (36.0-46.0); Hemoglobin 12.3 g/dL (12.2-16.2); Lymphocytes # (auto) 0.8 10 ^3/uL (0.4-5.4); Lymphocytes % (auto) 4.3 % (10.0-50.0); Mean Corpuscular Hemoglobin 30.3 pg (28.0-32.0); Mean Corpuscular Hgb Conc. 33.7 g/dL (32.0-36.0); Monocytes # (auto) 0.6 10 ^3/uL (0-1.3); Monocytes % (auto) 3.4 % (0.0-12.0); Neutrophils # (auto) 16.9 10 ^3/uL (1.6-8.6); Neutrophils % (auto) 92.2 % (37.0-80.0); Red Blood Cells 4.06 10^6/uL (4.0-5.20); Red Cell Distribution Width 12.6 % (11.8-14.3); White Blood Cell 18.3 10^3/uL (4.4-10.8)
[2023-05-19 08:23] LABS: Alanine Aminotransferase 19 U/L (7-40); Alkaline Phosphatase 109 U/L (46-116); Anion Gap 8 (5-15); Aspartate Aminotransferase 10 U/L (13-40); BUN/Creatinine Ratio 10.4 (10.0-20.0); Blood Urea Nitrogen 7 mg/dL (9-23); Calcium 8.8 mg/dL (8.7-10.4); Carbon Dioxide 25 mmol/L (20-30); Chloride 105 mmol/L (98-107); Glucose 112 mg/dL (74-106); Potassium 3.7 mmol/L (3.5-5.1); Sodium 138 mmol/L (136-145); Total Protein 6.6 g/dL (5.7-8.2)
[2023-05-19] MEDS: PANTOPRAZOLE 40 MG/10 ML VIAL INJ IV SCH (09:40)
[2023-05-19] MEDS: [UNRECOGNIZED DRUG - OTHER] PO SCH (09:41)
[2023-05-20] VITALS (7 sets, daily range): BP systolic 95–114; BP diastolic 62–70; PULSE 74–107; RESP 17–21; TEMP 98.6–100.2; O2SAT 96–100
[2023-05-20] MEDS: HYDROcodone-ACET 5/325MG TAB PO PRN ×4 (02:48→21:50)
[2023-05-20] MEDS: PIPERACILLIN-TAZOB 3.375GM 100 ML IV SCH ×3 (05:58→21:48)
[2023-05-20] MEDS: SODIUM CHLORIDE 0.9% 1,000 ML IV SCH ×3 (05:58→19:29)
[2023-05-20] MEDS: PANTOPRAZOLE 40 MG/10 ML VIAL INJ IV SCH (09:26)
[2023-05-20] MEDS: [UNRECOGNIZED DRUG - OTHER] PO SCH (09:26)
[2023-05-20] MEDS ORDERED: LACTULOSE 20Gm/30ML SOLN PO PRN (13:00)
[2023-05-21] MEDS: HYDROcodone-ACET 5/325MG TAB PO PRN ×2 (04:35→09:40)
[2023-05-21 05:00] VITALS: BP 103/61; PULSE 88; RESP 17; TEMP 98.3; O2SAT 96
[2023-05-21] MEDS: PIPERACILLIN-TAZOB 3.375GM 100 ML IV SCH (05:40)
[2023-05-21] MEDS: SODIUM CHLORIDE 0.9% 1,000 ML IV SCH (05:40)
[2023-05-21 08:00] VITALS: PULSE 72; RESP 18; O2SAT 98
[2023-05-21 09:00] VITALS: BP 107/63; PULSE 81; RESP 16; TEMP 98.2; O2SAT 96
[2023-05-21] MEDS: [UNRECOGNIZED DRUG - OTHER] PO SCH (09:40)
[2023-05-21] MEDS: PANTOPRAZOLE 40 MG/10 ML VIAL INJ IV SCH (09:40)
[2023-05-21] MEDS ORDERED: CIPROFLOXACIN HCL 500 MG TAB PO SCH (10:00)
[2023-05-21 10:29] LABS: Basophils # (auto) 0.1 10 ^3/uL (0-0.2); Basophils % (auto) 0.6 % (0.0-2.0); Eosinophils # (auto) 0.5 10 ^3/uL (0-0.8); Eosinophils % (auto) 5.1 % (0.0-7.0); Hematocrit 35.2 % (36.0-46.0); Hemoglobin 12.1 g/dL (12.2-16.2); Lymphocytes # (auto) 1.1 10 ^3/uL (0.4-5.4); Lymphocytes % (auto) 10.5 % (10.0-50.0); Mean Corpuscular Hemoglobin 30.4 pg (28.0-32.0); Mean Corpuscular Hgb Conc. 34.3 g/dL (32.0-36.0); Mean Corpuscular Volume 88.7 fL (80.0-100.0); Monocytes # (auto) 0.9 10 ^3/uL (0-1.3); Monocytes % (auto) 8.1 % (0.0-12.0); Neutrophils # (auto) 8.1 10 ^3/uL (1.6-8.6); Neutrophils % (auto) 75.7 % (37.0-80.0); Red Blood Cells 3.96 10^6/uL (4.0-5.20); Red Cell Distribution Width 12.6 % (11.8-14.3); White Blood Cell 10.8 10^3/uL (4.4-10.8)
[2023-05-21 10:58] LABS: Chloride 105 mmol/L (98-107); Potassium 3.6 mmol/L (3.5-5.1); Sodium 135 mmol/L (136-145)
[2023-05-21 10:59] LABS: Anion Gap 5 (5-15); Carbon Dioxide 25 mmol/L (20-30)
[2023-05-21 11:00] LABS: Calcium 8.6 mg/dL (8.5-10.1)
[2023-05-21 11:04] LABS: Glucose 106 mg/dL (74-106)
[2023-05-21 11:05] LABS: BUN/Creatinine Ratio 10.2 (10.0-20.0); Blood Urea Nitrogen < 5 mg/dL (9-23)
[2023-05-21] MEDS ORDERED: LEVO500T91 PO (11:10)
[2023-05-21] MEDS ORDERED: TRAM50TA2 PO (11:10)
[2023-05-21] MEDS ORDERED: MET500T PO (11:10)
[2023-05-21] MEDS ORDERED: metroNIDAZOLE 500 MG TAB PO SCH (14:00)
== END 2023-05-21 11:45 | disposition home or self-care (01) | DRG 854 ==
LOC: ER 23:19 → OVERFLOW 05-18 11:09 → CENTRAL 05-18 16:13
PROVIDERS: ADMIT Nurse Practitioner Family; ATTEND Internal Medicine
PROC: 0DTJ4ZZ Resection of Appendix, Percutaneous Endoscopic Approach (ICD-10-PCS; principal; 2023-05-18 11:45)
DX: A41.9 Sepsis, unspecified organism (principal); K35.30 Acute appendicitis with localized peritonitis, without perforation or gangrene; J45.909 Unspecified asthma, uncomplicated; E66.01 Morbid (severe) obesity due to excess calories; Z68.38 Body mass index [BMI] 38.0-38.9, adult; F32.A Depression, unspecified; R93.89 Abnormal findings on diagnostic imaging of other specified body structures; Z86.32 Personal history of gestational diabetes
CPT/HCPCS: 36415; 74177; 76830; 76856; 80048; 80053; 80061; 81001; 83605; 83690; 84443; 84702; 85025; 86850; 86900; 86901; 87040; 87070; 87075; 87076; 87077; 87186; 87205; 96361; 96365; 96375; C9113; G0378; J1100; J2250; J2405; J2543; J2704

== ENCOUNTER → 2024-10-24 | Outpatient (CLI) | payer BC ==
[~2024-10-24] MED LIST changes: +LEVO500T91 PO; +MET500T PO; +SERT50TA PO; +TRAM50TA2 PO
[2024-10-24 07:55] LABS: Basophils # (auto) 0 10 ^3/uL (0-0.2); Basophils % (auto) 0.7 % (0.0-2.0); Eosinophils # (auto) 0.2 10 ^3/uL (0-0.8); Eosinophils % (auto) 2.9 % (0.0-7.0); Hematocrit 42.6 % (36.0-46.0); Hemoglobin 14.9 g/dL (12.2-16.2); Lymphocytes # (auto) 1.9 10 ^3/uL (0.4-5.4); Lymphocytes % (auto) 27.9 % (10.0-50.0); Mean Corpuscular Hemoglobin 30.3 pg (28.0-32.0); Mean Corpuscular Hgb Conc. 34.9 g/dL (32.0-36.0); Monocytes # (auto) 0.5 10 ^3/uL (0-1.3); Neutrophils % (auto) 60.5 % (37.0-80.0); Nucleated Red Blood Cells % 0.1 %; Platelet Count (auto) 279 10^3/uL (140-450); Red Cell Distribution Width 12.6 % (11.8-14.3); White Blood Cell 6.7 10^3/uL (4.4-10.8)
[2024-10-24 08:42] LABS: Alanine Aminotransferase 24 U/L (7-40); Albumin 4.8 g/dL (3.2-4.8); Alkaline Phosphatase 90 U/L (46-116); Anion Gap 10 (5-15); Aspartate Aminotransferase 17 U/L (13-40); BUN/Creatinine Ratio 14.7 (10.0-20.0); Blood Urea Nitrogen 10 mg/dL (9-23); Calcium 9.9 mg/dL (8.7-10.4); Carbon Dioxide 25 mmol/L (20-31); Chloride 105 mmol/L (98-107); Cholesterol 155 mg/dL (< 200); Glucose 110 mg/dL (74-106); LDL Cholesterol 109 mg/dL (< 100); Potassium 4.1 mmol/L (3.5-5.1); Sodium 140 mmol/L (136-145); Total Protein 7.8 g/dL (5.7-8.2); Triglycerides 109 mg/dL (< 150)
[2024-10-24 08:43] LABS: Bilirubin, Total 0.7 mg/dL (0.2-1.0); HDL Cholesterol 41 mg/dL (40-59)
== END | disposition home or self-care (01) ==
LOC: LAB 07:28
PROVIDERS: ATTEND Licensed Practical Nurse
DX: O24.415 Gestational diabetes mellitus in pregnancy, controlled by oral hypoglycemic drugs (principal); O99.280 Endocrine, nutritional and metabolic diseases complicating pregnancy, unspecified trimester; O26.899 Other specified pregnancy related conditions, unspecified trimester; E03.9 Hypothyroidism, unspecified; E55.9 Vitamin D deficiency, unspecified; Z00.01 Encounter for general adult medical examination with abnormal findings; Z3A.00 Weeks of gestation of pregnancy not specified
CPT/HCPCS: 36415; 80053; 80061; 82306; 83036; 84443; 85025

== ENCOUNTER → 2025-04-24 | Outpatient (CLI) | payer BC ==
[2025-04-24 12:09] LABS: Hepatitis A Total Antibody Positive (Negative); Hepatitis B Surface Antigen Negative (Negative); Hepatitis C Antibody Negative (Negative)
[2025-04-25 17:07] LABS: Chlamydia Trachomatis, NAA Negative (Negative); Neisseria gonorrhoeae, NAA Negative (Negative)
== END | disposition home or self-care (01) ==
LOC: LAB 10:22
PROVIDERS: ATTEND Licensed Practical Nurse
DX: N93.9 Abnormal uterine and vaginal bleeding, unspecified (principal); R53.1 Weakness; Z11.3 Encounter for screening for infections with a predominantly sexual mode of transmission; Z13.6 Encounter for screening for cardiovascular disorders
CPT/HCPCS: 36415; 82607; 86703; 86704; 86706; 86708; 86780; 86803; 87340

== ENCOUNTER 2025-05-22 10:22 | Outpatient (CLI) | payer BC ==
[2025-05-22 12:01] LABS: Alanine Aminotransferase 27 U/L (7-40); Alkaline Phosphatase 96 U/L (46-116); Anion Gap 10 (5-15); BUN/Creatinine Ratio 15.4 (10.0-20.0); Blood Urea Nitrogen 10 mg/dL (9-23); Calcium 9.4 mg/dL (8.7-10.4); Carbon Dioxide 24 mmol/L (20-31); Chloride 106 mmol/L (98-107); Glucose 92 mg/dL (74-106); Potassium 3.9 mmol/L (3.5-5.1); Sodium 140 mmol/L (136-145); Total Protein 7.8 g/dL (5.7-8.2)
[2025-05-22 12:02] LABS: Albumin 4.7 g/dL (3.2-4.8); Bilirubin, Total 0.7 mg/dL (0.2-1.0); Iron 109.0 ug/dL (50-170)
[2025-05-22 12:03] LABS: Beta HCG, Quantitative 0.7 mIU/mL (1.5-4.2)
[2025-05-22 12:04] LABS: Thyroid Stimulating Hormone 0.82 uIU/mL (0.55-4.78); Total Iron Binding Capacity 334.0 ug/dL (250-425)
[2025-05-22 12:05] LABS: Ferritin 42.1 ng/mL (10-291); Follicle Stimulating Hormone 2.34 IU/L (SEE BELOW)
[2025-05-22 12:07] LABS: Free T4 (Free Thyroxine) 1.43 ng/dL (0.89-1.76)
== END 2025-05-22 17:00 | disposition home or self-care (01) ==
LOC: LAB 10:22
DX: N93.9 Abnormal uterine and vaginal bleeding, unspecified (principal); N92.0 Excessive and frequent menstruation with regular cycle; Z79.899 Other long term (current) drug therapy
CPT/HCPCS: 36415; 80053; 82626; 82670; 82728; 83001; 83002; 83036; 83540; 83550; 84146; 84270; 84402; 84403; 84439; 84443; 84702